=== PATIENT | female | born 1975 | race Two or more races ===

== ENCOUNTER 2017-02-07 18:30 | Emergency (ER) | payer OTHER ==
[~2017-02-07] VITALS: Ht 154.9 cm; Wt 63.5 kg
[2017-02-07] MEDS ORDERED: Oxymetazoline 0.05% Na Spray 30ml NASAL ONE (19:15)
--- NOTE | 2017-02-07 19:29 | Emergency Room Report ---
History of Present Illness General Chief Complaint: Nosebleed Source: Patient Present Illness HPI 41 YO female presents to the ED c/o nosebleed x 1 day and ESQUEDA 6/10 in severity. Pt denies trauma, denies taking blood thinning medications, denies hx of nose bleeds. HPI and ROS limited due to language barrier. Denies CP, Palpitations, LOC, AMS, dizziness, Changes in Vision, Sensation, paresthesias, or a sudden onset of severe headache. Allergies: Coded Allergies: Pork (Verified Allergy, Unknown, 02/07/17) Uncoded Allergies: PENICILLIN (Allergy, Unknown, 02/07/17) Patient History Past Medical History: see triage record Past Surgical History: none Pertinent Family History: none Last Menstrual Period: 02/02/2017 Now: No : 2 Para: 1 Reviewed Nursing Documentation: PMH: Agreed, PSxH: Agreed Nursing Documentation-PMH Past Medical History: No History, Except For Review of Systems All Other Systems: limited Physical Exam Vital Signs Date Time Temp Pulse Resp B/P Pulse Ox O2 Delivery O2 Flow Rate FiO2 02/07/17 18:38 98.1 65 16 118/63 100 Room Air Sp02 EP Interpretation: reviewed, normal General Appearance: no apparent distress, alert, GCS 15, non-toxic Head: normocephalic, atraumatic Eyes: bilateral eye PERRL, bilateral eye normal inspection ENT: hearing grossly normal, normal pharynx, no angioedema, normal voice, uvula midline, moist mucus membranes, other - prominent vessels noted on the septum bilaterally, no evidence of blood, clots, or active bleeding. Neck: full range of motion, supple/symm/no masses Respiratory: lungs clear, normal breath sounds, speaking full sentences Cardiovascular #1: regular rate, rhythm, no edema, normal capillary refill Gastrointestinal: normal bowel sounds, non tender, soft, no guarding, no rebound Rectal: deferred Musculoskeletal: back normal, gait/station normal, normal range of motion, non- tender Neurologic: alert, oriented x3, responsive, motor strength/tone normal, sensory intact, cerebellar normal, normal gait, speech normal Psychiatric: judgement/insight normal, memory normal, mood/affect normal, no suicidal/homicidal ideation Skin: normal color, no rash, warm/dry, well hydrated Lymphatic: no adenopathy Medical Decision Making PA Attestation Dr. Young is my supervising Physician whom patient management has been discussed with. Diagnostic Impression: Primary Impression: Mild epistaxis Additional Impression: Head ache Qualified Codes: R51 - Headache ER Course Pt. presents to the ED c/o nosebleed x 1 day and ESQUEDA 6/10 in severity. Ddx considered but are not limited to epistaxis , clotting disorder, above therapeutic levels on blood thinner. nasal trauma, septal hematoma. ESQUEDA, migraine, trauma Vital signs: are WNL, pt. is afebrile H&PE are most consistent with: s/p epistaxis no current bleeding at this time., no focal neurological deficits. -No evidence of trauma, pt. not on blood thinning medications no other symptoms indicating clotting abnormality. ORDERS: none required at this time, the diagnosis is clinical ED INTERVENTIONS: - Tylenol PO for pain. -None required at this time. no active bleeding. Pt. declines cauterization. - Affrin spray applied to bilateral nares, and was given to pt. to take home. DISCHARGE: At this time pt. is stable for d/c to home. Will provide printed patient care instructions, and any necessary prescriptions. Care plan and follow up instructions have been discussed with the patient prior to discharge. Last Vital Signs Date Time Temp Pulse Resp B/P Pulse Ox O2 Delivery O2 Flow Rate FiO2 02/07/17 18:38 98.1 65 16 118/63 100 Room Air Disposition: HOME, SELF-CARE Condition: Stable Scripts Acetaminophen* (TYLENOL EXTRA STRENGTH*) 500 Mg Tablet 500 MG ORAL Q6H, #30 TAB 0 Refills Prov: Beena Lagos 02/07/17 Patient Instructions: General Headache Without Cause, [id number] Additional Instructions: Take medications as directed. Follow up with PCP in 3-5 days Return sooner to ED if new symptoms occur, or current symptoms become worse. - Please note that this Emergency Department Report was dictated using [employer] education instructor technology software, occasionally this can lead to erroneous entry secondary to interpretation by the dictation equipment. Beena Lagos Feb 07, 2017 19:29
[2017-02-07] MEDS ORDERED: TYLENOL EXTRA500 MG ORAL (19:33)
[2017-02-07 19:48] VITALS: BP 115/70
[2017-02-07 19:50] VITALS: BP 115/70
== END 2017-02-07 19:50 | disposition home or self-care (01) ==
LOC: EMR 19:10
DX: R04.0 Epistaxis (principal); R51 Headache; Z88.0 Allergy status to penicillin; Z91.018 Allergy to other foods
CPT/HCPCS: 99282

== ENCOUNTER 2018-02-11 12:47 | Emergency (ER) | payer OTHER ==
[~2018-02-11] VITALS: Ht 154.9 cm; Wt 63.5 kg
[~2018-02-11 12:47] MED LIST: TYLENOL EXTRA500 MG ORAL
[2018-02-11 13:06] VITALS: BP 129/62
[2018-02-11] MEDS ORDERED: NKM (13:09)
[2018-02-11] MEDS ORDERED: oxyCODONE HCL/Acetaminophen 5/325mg ORAL ONE (13:45)
[2018-02-11 14:03] LABS: APPEARANCE,URINE CLEAR; BILIRUBIN, URINE NEGATIVE (NEGATIVE); COLOR,URINE PALE YELLOW; GLUCOSE, URINE (UA) NEGATIVE (NEGATIVE); KETONES,URINE NEGATIVE (NEGATIVE); LEUKOCYTE ESTERASE ,URINE NEGATIVE (NEGATIVE); NITRITE,URINE NEGATIVE (NEGATIVE); PH,URINE 5 (4.5-8.0); PROTEIN,URINE NEGATIVE (NEGATIVE); UROBILINOGEN,URINE NORMAL MG/DL (0.0-1.0)
--- NOTE | 2018-02-11 15:00 | Emergency Room Report ---
History of Present Illness General Chief Complaint: Back Injury Source: Patient Present Illness HPI Patient was making beds today and bent over and had sharp back pain. She is having trouble bending with severe back pain rated 10/10 lumbar area, not radiating. Back tightens up when she moves. No meds. No saddle numbness, weakness, tingling. No fevers, incontinence, blood thinners, oncologic problems , dysuria. Prior injury 2012 which felt similar. Had back x-rays done apparently "normal" . Was told to be careful. No physical therapy. No major medical problems. No chest pain, cough, rashes. Last menses normal. Allergies: Coded Allergies: Pork (Verified Allergy, Unknown, 02/07/17) Uncoded Allergies: PENICILLIN (Allergy, Unknown, 02/07/17) Patient History Past Medical History: see triage record Social History: Denies: smoking, alcohol use, drug use Social History Narrative housekeeping in hotel Last Menstrual Period: 02/03/18 Reviewed Nursing Documentation: PMH: Agreed; PSxH: Agreed Nursing Documentation-PMH Past Medical History: No Stated History Review of Systems All Other Systems: negative except mentioned in HPI Physical Exam Vital Signs Date Time Temp Pulse Resp B/P (MAP) Pulse Ox O2 Delivery O2 Flow Rate FiO2 02/11/18 13:06 80 12 129/62 100 Room Air 02/11/18 13:06 98.1 98.1 Sp02 EP Interpretation: reviewed, normal General Appearance: well appearing, no apparent distress, GCS 15 Head: normocephalic Eyes: bilateral eye normal inspection, bilateral eye PERRL ENT: moist mucus membranes Neck: supple Respiratory: lungs clear, normal breath sounds Cardiovascular #1: regular rate, rhythm Cardiovascular #2: 2+ radial (R) Gastrointestinal: normal inspection, non-distended Genitourinary: no CVA tenderness Musculoskeletal: gait/station normal, normal range of motion, tender - lumbar area, not bony, paraspinous spasms Neurologic: alert, oriented x3, motor strength/tone normal, DTRs symmetric, sensory intact, speech normal Psychiatric: anxious Reflexes: 2+ knee (R), 2+ knee (L); 1+ ankle (R), 1+ ankle (L) Skin: normal inspection, warm/dry Medical Decision Making Diagnostic Impression: Primary Impression: Back strain Qualified Codes: S39.012A - Strain of muscle, fascia and tendon of lower back , initial encounter ER Course Patient presents with back pain after bending over. DDx: strain, spasm, disk disease amongst others. Exam against sciatica. No red flag symptoms. Having prior "normal" x-rays with presentation and exam precludes need for xrays now. Focus on analgesia. Initially offered shot for pain. Refused shot as afraid of needles. Oral analgesia ordered. Improved with meds. Still with pain and holds fist under lumbar area with some relief with this. Discussed need for local care, medications and physical therapy. Patient stable for outpatient observation and treatment. Last Vital Signs Date Time Temp Pulse Resp B/P (MAP) Pulse Ox O2 Delivery O2 Flow Rate FiO2 02/11/18 15:19 98.1 79 16 102/88 100 Room Air 98.1 Status: improved Disposition: HOME, SELF-CARE Condition: Improved Scripts Methocarbamol* (ROBAXIN*) 500 Mg Tablet 500 MG PO TID, #12 TAB 0 Refills Prov: Jarocho Cartwright M.D. 02/11/18 Ibuprofen* (MOTRIN*) 600 Mg Tablet 600 MG ORAL Q6H PRN for For Pain, #20 TAB Prov: Jarocho Cartwright M.D. 02/11/18 Tramadol Hcl* (ULTRAM*) 50 Mg Tablet 50 MG ORAL Q6H PRN for For Pain, #12 TAB 0 Refills Prov: Jarocho Cartwright M.D. 02/11/18 Referrals: NOT CHOSEN HUSAM/,REFERRING (PCP) Jarocho Cartwright M.D. Feb 11, 2018 15:00
[2018-02-11] MEDS ORDERED: IBUPROFEN600 MG ORAL (15:03)
[2018-02-11] MEDS ORDERED: ROBAXIN500 MG PO (15:03)
[2018-02-11] MEDS ORDERED: TRAMADOL HCL50 MG ORAL (15:03)
[2018-02-11 15:16] VITALS: BP 102/88
[2018-02-11 15:19] VITALS: BP 102/88
== END 2018-02-11 15:21 | disposition home or self-care (01) ==
LOC: EMR 13:15
DX: S39.012A Strain of muscle, fascia and tendon of lower back, initial encounter (principal); X50.1XXA Overexertion from prolonged static or awkward postures, initial encounter; Y92.59 Other trade areas as the place of occurrence of the external cause; Y99.0 Civilian activity done for income or pay; Z88.0 Allergy status to penicillin
CPT/HCPCS: 81003; 81025; 99284